=== PATIENT | male | born 1990 | race Caucasian/White ===

== ENCOUNTER 2016-12-03 22:21 | Emergency (ER) | payer SELFPAY ==
[2016-12-03 22:35] VITALS: RESP 20; TEMP 98
--- NOTE | 2016-12-04 00:15 | C.PDOC ---
History Of Present Illness A 26 y/o M c/o right ankle pain after falling off a 3ft stool landing and twisting his right ankle a week prior at work. Unable to bear weight, pain is worse today. Denies numbness, fever, chills, LOC, head injury, or any other complaints. Time Seen by Provider: 12/03/16 22:44 Chief Complaint (Nursing): Lower Extremity Problem/Injury History Per: Patient History/Exam Limitations: no limitations Onset/Duration Of Symptoms: Days Current Symptoms Are (Timing): Still Present Severity: Mild Recent travel outside of the [place]: No Additional History Per: Patient - Ankle/Foot Description Of Injury: Fell Currently Unable To: Bear Weight Past Medical History Reviewed: Historical Data, Nursing Documentation, Vital Signs Vital Signs: Last Vital Signs Temp 98 F 12/03/16 22:31 Pulse 78 12/04/16 00:46 Resp 20 12/04/16 00:46 BP 128/76 12/04/16 00:46 Pulse Ox 98 12/04/16 04:56 - [facility] Procedures TETANUS TOXOID ADMINIST (12/27/14) Family History: States: Unknown Family Hx - Social History Hx Alcohol Use: No Hx Substance Use: No - Immunization History Hx Tetanus Toxoid Vaccination: Yes (pt does not know) Hx Influenza Vaccination: No Hx Pneumococcal Vaccination: No Review Of Systems Except As Marked, All Systems Reviewed And Found Negative. Constitutional: Negative for: Fever, Chills, Other (Head injury) Musculoskeletal: Positive for: Foot Pain (Right ankle pain) Neurological: Negative for: Numbness, Other (LOC) Physical Exam - Physical Exam Appears: Non-toxic, No Acute Distress Skin: Warm, Dry Head: Atraumatic, Normacephalic Extremity: Tenderness (Left lateral malleolus.), No Calf Tenderness, Capillary Refill (<2secs), No Deformity, Swelling (Minimal swelling.) Pulses: Left Dorsalis Pedis: Normal, Right Dorsalis Pedis: Normal Neurological/Psych: Oriented x3, Normal Speech, Normal Cognition, Normal Motor, Normal Sensation, Other (No focal deficit) ED Course And Treatment O2 Sat by Pulse Oximetry: 98 (RA) Pulse Ox Interpretation: Normal Progress Note: Impression: v 26 y/o M c/o right ankle pain after a fall that occurred a week prior. Plans: Motrin, XRAY ankle, Reassess. XRAY: Questionable non-displaced fracture of the right distal fibia. Pt is in no acute distress and is resting comfortable and is improving with the right ankle pain. Pt was instructed to follow up with PMD or clinic for further evaluation. Return precausions were given. Disposition Counseled Patient/Family Regarding: Diagnosis, Need For Followup, Rx Given - Disposition Referrals: Margi Myers MD [Staff Provider] - [facility] [place] [Outside] [facility] [Outside] Disposition: HOME/ ROUTINE Disposition Time: 00:15 Condition: STABLE Additional Instructions: Elevate leg Take motrin for pain Follow up with orthopedist Return to ER if worse Prescriptions: Ibuprofen [Motrin] 600 mg PO Q6H #24 tab Instructions: Ankle Fracture (ED) - Clinical Impression Clinical Impression: Ankle fracture - Scribe Statement The provider has reviewed the documentation as recorded by the Scribe Tino fong All medical record entries made by the Scribe were at my direction and personally dictated by me. I have reviewed the chart and agree that the record accurately reflects my personal performance of the history, physical exam, medical decision making, and the department course for this patient. I have also personally directed, reviewed, and agree with the discharge instructions and disposition.
[2016-12-04 00:46] VITALS: BP 128/76; PULSE 78
[2016-12-04 04:50] VITALS: O2SAT 98
--- NOTE | 2016-12-04 13:43 | RAD ---
Right ankle three views History: Twisting injury. Comparison: None available. Findings: Prominent lateral malleolar soft tissue swelling. No evidence of acute displaced fracture or dislocation. Findings: Lateral malleolar soft tissue swelling. If pain persists, consider MRI.
== END 2016-12-04 00:46 | disposition home or self-care (01) ==
LOC: C.ER 22:21
DX: S82.891A Other fracture of right lower leg, initial encounter for closed fracture (principal); W11.XXXA Fall on and from ladder, initial encounter; Y93.89 Activity, other specified; Y92.89 Other specified places as the place of occurrence of the external cause; Y99.0 Civilian activity done for income or pay

== ENCOUNTER 2018-10-22 22:45 | Emergency (ER) | payer OTHER ==
[2018-10-22 22:46] VITALS: BMI 32.8
[2018-10-22 22:55] VITALS: O2SAT 99
[2018-10-22] MEDS ORDERED: Iohexol 240 (50 ml) PO ONE (23:30)
[2018-10-22] MEDS ORDERED: Iodixanol 320 MG/ML 100 ML BOTTLE IV ONE (23:31)
[2018-10-22 23:51] LABS: URINE BILIRUBIN NEGATIVE (NEGATIVE); URINE BLOOD NEGATIVE (NEGATIVE); URINE CLARITY Clear (Clear); URINE COLOR Yellow (YELLOW); URINE GLUCOSE (UA) NORMAL (Normal); URINE LEUKOCYTE ESTERASE NEG Leu/uL (Negative); URINE PROTEIN NEGATIVE (NEGATIVE)
[2018-10-22] MEDS ORDERED: Iohexol 240 (50 ml) ONE (23:51)
[2018-10-22 23:53] LABS: BASO % 0.4 % (0.0-2.0); EOS # 0.6 K/uL (0.0-0.7); EOS % 8.4 % (0.0-4.0); HEMOGLOBIN 14.7 g/dL (12.0-18.0); LYMPH # 2.1 K/uL (1.0-4.3); LYMPH % 30.8 % (20.0-40.0); MEAN CELL VOLUME 89.3 fL (80.0-94.0); MEAN CORPUSCULAR HGB CONC 34.7 g/dL (33.0-37.0); MONO # 0.8 K/uL (0.0-0.8); MONO % 11.7 % (0.0-10.0); NEUT # 3.3 K/uL (1.8-7.0); NEUT % 48.7 % (50.0-75.0); RBC 4.76 Mil/uL (4.40-5.90); WHITE BLOOD COUNT 6.7 K/uL (4.8-10.8)
[2018-10-23 00:01] LABS: ALB/GLOB RATIO 1.2 (1.0-2.1); ALBUMIN 4.3 g/dL (3.5-5.0); ALT/SGPT 191 U/L (21-72); AST/SGOT 102 U/L (17-59); BLOOD UREA NITROGEN 17 mg/dL (9-20); GFR NON-AFRICAN AMERICAN > 60
--- NOTE | 2018-10-23 00:20 | C.PDOC ---
History Of Present Illness 28 year old male presents to the ED c/o abdominal pain and a dry cough for the past 2 days. Patient reports having the symptoms for the past 5 plus years but recently worsened. Patient reports dry cough causes a burning sensation in 3 spots in his periumbilical region. Of note, patient reports one month ago he sneezed forcefully and felt something "pop out " of his abdomen with some cramping sensation. Patient was able to push it in and felt some relief. Patient denies fever, chills, nausea, vomit, diarrhea, back pain, dysuria, hematuria, rash, CP, SOB, history of hernia, trauma. Chief Complaint (Nursing): Abdominal Pain History Per: Patient History/Exam Limitations: no limitations Onset/Duration Of Symptoms: Days Current Symptoms Are (Timing): Still Present Location Of Pain/Discomfort: Periumbilical Radiation Of Pain To:: None Quality Of Discomfort: "Pain" Associated Symptoms: Other (cough). denies: Nausea, Vomiting, Diarrhea, Urinary Symptoms Recent travel outside of the [place]: No Additional History Per: Patient Past Medical History Reviewed: Historical Data, Nursing Documentation, Vital Signs Vital Signs: Last Vital Signs Temp 98.6 F 10/22/18 22:53 Pulse 90 10/22/18 22:53 Resp 18 10/22/18 22:53 BP 138/82 10/22/18 22:53 Pulse Ox 99 10/22/18 22:53 Primary Care Provider: Zohreh Nunez M - Medical History PMH: No Chronic Diseases Denies: Hiatal Hernia Surgical History: No Surg Hx - [facility] Procedures TETANUS TOXOID ADMINIST (12/27/14) Family History: States: Unknown Family Hx - Social History Hx Alcohol Use: No Hx Substance Use: No - Immunization History Hx Tetanus Toxoid Vaccination: Yes (pt does not know) Hx Influenza Vaccination: No Hx Pneumococcal Vaccination: No Review Of Systems Constitutional: Negative for: Fever, Chills Cardiovascular: Negative for: Chest Pain Respiratory: Positive for: Cough. Negative for: Shortness of Breath Gastrointestinal: Positive for: Abdominal Pain. Negative for: Nausea, Vomiting Genitourinary: Negative for: Dysuria, Hematuria Musculoskeletal: Negative for: Back Pain Skin: Negative for: Rash Neurological: Negative for: Weakness, Numbness Physical Exam - Physical Exam Appears: Non-toxic, No Acute Distress Skin: Normal Color, Warm, Dry, No Rash Head: Atraumatic, Normacephalic Eye(s): bilateral: Normal Inspection Oral Mucosa: Moist Neck: Normal ROM, Supple Chest: Symmetrical Cardiovascular: Rhythm Regular Respiratory: Normal Breath Sounds, No Rales, No Rhonchi, No Wheezing Gastrointestinal/Abdominal: Bowel Sounds (active), Soft, No Tenderness, No Guarding, No Rebound, No Hernia Back: No CVA Tenderness Extremity: Normal ROM, No Tenderness, No Swelling Extremity: Bilateral: Atraumatic Neurological/Psych: Oriented x3, Normal Speech, Normal Cognition, Normal Motor, Normal Sensation Gait: Steady ED Course And Treatment - Laboratory Results Result Diagrams: 10/22/18 23:45 10/22/18 23:45 Lab Results: Total Bilirubin 0.5 mg/dL (0.2-1.3) 10/22/18 23:45 AST 102 U/L (17-59) H D 10/22/18 23:45 ALT 191 U/L (21-72) H D 10/22/18 23:45 Alkaline Phosphatase 115 U/L (38-126) 10/22/18 23:45 Total Protein 8.0 g/dL (6.3-8.3) 10/22/18 23:45 Albumin 4.3 g/dL (3.5-5.0) 10/22/18 23:45 Globulin 3.7 gm/dL (2.2-3.9) 10/22/18 23:45 Albumin/Globulin Ratio 1.2 (1.0-2.1) 10/22/18 23:45 Urine Color Yellow (YELLOW) 10/22/18 23:45 Urine Clarity Clear (Clear) 10/22/18 23:45 Urine pH 6.0 (5.0-8.0) 10/22/18 23:45 Ur Specific Isabel 1.031 (1.003-1.030) H 10/22/18 23:45 Urine Protein Negative mg/dL (NEGATIVE) 10/22/18 23:45 Urine Glucose (UA) Normal mg/dL (Normal) 10/22/18 23:45 Urine Ketones Negative mg/dL (NEGATIVE) 10/22/18 23:45 Urine Blood Negative (NEGATIVE) 10/22/18 23:45 Urine Nitrate Negative (NEGATIVE) 10/22/18 23:45 Urine Bilirubin Negative (NEGATIVE) 10/22/18 23:45 Urine Urobilinogen 4.0 mg/dL (0.2-1.0) 10/22/18 23:45 Ur Leukocyte Esterase Neg Love/uL (Negative) 10/22/18 23:45 Urine WBC (Auto) < 1 /hpf (0-5) 10/22/18 23:45 Urine RBC (Auto) < 1 /hpf (0-3) 10/22/18 23:45 O2 Sat by Pulse Oximetry: 99 (ON RA) Pulse Ox Interpretation: Normal - CT Scan/US CT abd/pelvis Other Rad Studies (CT/US): Read By Radiologist, Radiology Report Reviewed CT/US Interpretation: CT SCAN OF THE ABDOMEN AND PELVIS WITH CONTRAST. CLINICAL HISTORY: Abdominal pain. TECHNIQUE: Multiple axial and coronal CT images were obtained through the abdomen and pelvis after administration of intravenous and oral contrast material. COMMENTS: Fat containing umbilical hernia without incarceration. The liver is enlarged with decreased attenuation without mass or defect. There is no intra or extrahepatic biliary ductal dilatation. The spleen is normal. The gallbladder is within normal limits. The pancreas is of normal contour and attenuation characteristics. There is no evidence of adrenal mass. Both kidneys demonstrate prompt and equal nephrograms. The kidneys are normal in size, shape and configuration. There is no evidence of renal or ureteral mass. No renal or ureteral calculi are identified. There is no hydroureter or hydronephrosis. No evidence for appendicitis. There is no bowel wall thickening. No evidence for small or large bowel obstruction. There is no guy dence of abdominal ascites or lymphadenopathy. There is no evidence of intrinsic or extrinsic bladder mass. There is no pelvic ascites or lymphadenopathy. Images of the lung bases show no evidence of pleural or parenchymal mass. There are no pleural effusions. The bony structures are free of lytic or blastic lesions. IMPRESSION: Fat-containing umbilical hernia without incarceration. Hepatomegaly with hepatic steatosis. No evidence of acute abdominal or pelvic pathology. Thank you for your kind referral of this patient. . Electronically signed on October 23, 2018 2:51:41 AM EDT by: Mary Sesay M.D., Certified by ABR, MSK, Neuroradiology. Medical Decision Making Medical Decision Making: Plan: * CT abd/pelvis- fat containing umbilical hernia without incarceration, hepatomegaly with hepatic steatosis * Labs- eolevated LFTS * UA- unremarkable * patient informed of results and advised to follow up with general surgery for further treatment * will treat with Tessalon perles and allergy meds to help with cough/allergy symptoms * patient verbalized understanding and is stable for discharge Disposition Counseled Patient/Family Regarding: Diagnosis, Need For Followup, Rx Given - Disposition Referrals: [facility] [Outside] Disposition: HOME/ ROUTINE Disposition Time: 03:10 Condition: IMPROVED Additional Instructions: Lab and CT imaging reports given to you for your records Continue meds as prescribed follow up with general surgery for further treatment follow up with PMD regrading fatty liver and elevated liver function test Return to ED if symptoms worsen Prescriptions: Benzonatate [Tessalon Perles] 100 mg PO TID #30 sgl Levocetirizine Dihydrochloride [Xyzal] 5 mg PO HS PRN #30 tablet PRN Reason: Allergy Symptoms Instructions: Seasonal Allergies (DC), Nonalcoholic Fatty Liver Disease (DC), Umbilical Hernia, Adult Forms: [employer] (Turkmen) - Clinical Impression Clinical Impression: Abdominal pain, Cough, Seasonal allergies, Hernia, umbilical, Elevated LFTs, Hepatomegaly - PA / [employer] / Resident Statement MD/DO has reviewed & agrees with the documentation as recorded. - Scribe Statement The provider has reviewed the documentation as recorded by the Scribmiguelangel Bauer All medical record entries made by the Evitaibmiguelangel were at my direction and personally dictated by me. I have reviewed the chart and agree that the record accurately reflects my personal performance of the history, physical exam, medical decision making, and the department course for this patient. I have also personally directed, reviewed, and agree with the discharge instructions and disposition.
--- NOTE | 2018-10-23 00:59 | C.PDOC ---
Chief Complaint (Nursing): Abdominal Pain Past Medical History Vital Signs: Last Vital Signs Temp 98.6 F 10/22/18 22:53 Pulse 90 10/22/18 22:53 Resp 18 10/22/18 22:53 BP 138/82 10/22/18 22:53 Pulse Ox 99 10/22/18 22:53 Primary Care Provider: Zohreh Nunez Procedures TETANUS TOXOID ADMINIST (12/27/14) Family History: States: Unknown Family Hx - Social History Hx Alcohol Use: No Hx Substance Use: No - Immunization History Hx Tetanus Toxoid Vaccination: Yes (pt does not know) Hx Influenza Vaccination: No Hx Pneumococcal Vaccination: No ED Course And Treatment O2 Sat by Pulse Oximetry: 99 Disposition - Disposition
[2018-10-23 03:43] VITALS: BP 121/77; PULSE 85; RESP 16; TEMP 98.3
--- NOTE | 2018-10-23 15:30 | CT ---
Date of service: 10/23/2018 PROCEDURE: CT Abdomen and Pelvis with contrast HISTORY: abdominal pain; r/o hernia COMPARISON: None. TECHNIQUE: Contrast dose: 100 mL Visipaque 320 intravenously. Axial and reformatted coronal and sagittal CT images of the abdomen and pelvis were obtained Radiation dose: Total exam DLP = 808.17 mGy-cm. This CT exam was performed using one or more of the following dose reduction techniques: Automated exposure control, adjustment of the mA and/or kV according to patient size, and/or use of iterative reconstruction technique. FINDINGS: LOWER THORAX: Unremarkable. LIVER: Hepatomegaly and moderate hepatic steatosis. GALLBLADDER AND BILE DUCTS: Unremarkable. PANCREAS: Unremarkable. No gross lesion or ductal dilatation. SPLEEN: Unremarkable. ADRENALS: Unremarkable. No mass. KIDNEYS AND URETERS: Unremarkable. No hydronephrosis. No solid mass. VASCULATURE: Unremarkable. No aortic aneurysm. No aortic atherosclerotic calcification or mural plaque present. BOWEL: Unremarkable. No obstruction. No gross mural thickening. APPENDIX: Normal appendix. PERITONEUM: Unremarkable. No free fluid. No free air. LYMPH NODES: Unremarkable. No enlarged lymph nodes. BLADDER: Unremarkable. REPRODUCTIVE: Unremarkable. BONES: No acute fracture. OTHER FINDINGS: There is a small fat containing umbilical hernia. IMPRESSION: Small fat containing umbilical hernia measures 2.5 x 1.1 centimeter. Hepatomegaly and hepatic steatosis. No evidence of acute pathology in the abdomen and pelvis. Preliminary report was submitted by [facility] Radiology contains concordant findings
== END 2018-10-23 03:42 | disposition home or self-care (01) ==
LOC: C.ER 22:45
DX: R10.9 Unspecified abdominal pain (principal); J30.2 Other seasonal allergic rhinitis; K42.9 Umbilical hernia without obstruction or gangrene; R16.0 Hepatomegaly, not elsewhere classified; R79.89 Other specified abnormal findings of blood chemistry; R05 Cough
CPT/HCPCS: 74177; 80053; 81001; 85025; 99285; Q9966; Q9967